=== PATIENT | male | born 1960 | race Caucasian/White ===

== ENCOUNTER 2017-03-02 10:18 | Emergency (ER) | payer OTHER ==
[~2017-03-02] VITALS: Ht 172.7 cm; Wt 111.1 kg
[2017-03-02 10:19] VITALS: BP 158/85
[2017-03-02] MEDS ORDERED: HYDR25T PO (10:24)
[2017-03-02] MEDS ORDERED: LISI10TA4 PO (10:24)
[2017-03-02] MEDS ORDERED: MELO7.5T6 PO (10:24)
[2017-03-02] MEDS ORDERED: DOXY100C37 PO (11:41)
== END 2017-03-02 11:55 | disposition home or self-care (01) ==
LOC: M ED 11:27
DX: S80.861A Insect bite (nonvenomous), right lower leg, initial encounter (principal); W57.XXXA Bitten or stung by nonvenomous insect and other nonvenomous arthropods, initial encounter; Y92.89 Other specified places as the place of occurrence of the external cause; Y93.89 Activity, other specified; Y99.9 Unspecified external cause status

== ENCOUNTER → 2020-01-15 | Outpatient (REF) | payer BC ==
[~2020-01-15] MED LIST: DOXY100C37 PO; HYDR-3363 PO; LISI10TA4 PO; MELO7.5T7 PO
[2020-01-15 12:57] LABS: BASO # 0.1 10^3/uL (0.0-0.2); BASO % 0.5 % (0.0-1.0); EOS # 0.2 10^3/uL (0.0-0.5); EOS % 1.6 % (0.0-3.0); HEMATOCRIT 47.8 % (42.0-52.0); HEMOGLOBIN 15.9 g/dl (13.5-17.5); LYMPH % 20.8 % (24.0-44.0); MEAN CORPUSCULAR HEMOGLOBIN 29.1 pg (27.0-33.0); MEAN CORPUSCULAR HGB CONC 33.3 g/dl (32.0-36.5); MEAN CORPUSCULAR VOLUME 87.4 fl (80.0-96.0); MONO # 0.6 10^3/uL (0.0-0.8); MONO % 6.4 % (0.0-5.0); NEUTROPHILS # 6.7 10^3/uL (1.5-8.5); NEUTROPHILS % 70.4 % (36.0-66.0); PLATELET COUNT, AUTOMATED 418 10^3/uL (150-450); RED BLOOD COUNT 5.47 10^6/uL (4.30-6.10); WHITE BLOOD COUNT 9.5 10^3/uL (4.0-10.0)
[2020-01-15 12:58] LABS: C REACTIVE PROTEIN QUANTITATIV 3.62 MG/DL (0.00-0.30)
[2020-01-15 13:33] LABS: ERYTHROCYTE SEDIMENTATION RATE 25 mm/hr (0-20)
== END ==
LOC: M LABDRAW1 09:10
PROVIDERS: ATTEND Physician Assistant Medical
DX: M25.572 Pain in left ankle and joints of left foot (principal)